=== PATIENT | female | born 1990 | race Caucasian/White ===

== ENCOUNTER 2016-11-04 17:33 | Emergency (ER) | payer OTHER, BC ==
[2016-11-04 17:47] VITALS: BMI 26.6
--- NOTE | 2016-11-04 17:50 | PDOC ---
History of Present Illness <Carin Hodgson - Last Filed: 11/04/16 18:06> - General History Source: Care Provider, Family Exam Limitations: No Limitations - History of Present Illness Initial Comments: 11/04/16 18:01 CHIEF COMPLAINT: Presents with dog bite to the face. HISTORY OF PRESENT ILLNESS: 46-year-old female with history of seizure disorder , autism, and mental retardation presents with a dog bite to the face. Patient lives with her mom. She was at the [place] house today and she likes to play with the dog there. The dog is healthy and fully vaccinated. The clerk of works was in the next room and the next thing she knows there was a bite to the patient's right face. There are multiple lacerations to the right infraorbital and cheek region as well as to the right nostril. Last tetanus booster is unknown. REVIEW OF SYSTEMS: No fever or chills No other complaints reported by the mother, patient is unable to relate complaints All other review of systems unobtainable <Alexandr Shankar - Last Filed: 11/04/16 20:01> - General Chief Complaint: Bite Stated Complaint: DOGBITE Time Seen by Provider: 11/04/16 17:49 Past History <Carin Hodgson - Last Filed: 11/04/16 18:06> - Past Medical History Seizures: Yes Other medical history: MR. - Psycho/Social/Smoking Cessation Hx Anxiety: No Suicidal Ideation: No Smoking History: Never smoked Hx Alcohol Use: No Drug/Substance Use Hx: No Substance Use Type: None <Alexandr Shankar - Last Filed: 11/04/16 20:01> - Past Medical History Allergies/Adverse Reactions: Allergies Allergy/AdvReac Type Severity Reaction Status Date / Time No Known Allergies Allergy Verified 11/04/16 17:35 Home Medications: Ambulatory Orders Amitriptyline HCl [Elavil -] 50 mg PO HS 11/04/16 Amoxicillin/Potassium Clav [Augmentin 875-125 Tablet] 1 each PO BID #14 tablet 11/04/16 Clonidine HCl 0.2 mg PO HS 11/04/16 Divalproex [Depakote -] 625 mg PO BID 11/04/16 *Physical Exam - Vital Signs Last Vital Signs Temp Pulse Resp BP Pulse Ox 138 H 22 149/97 98 11/04/16 17:34 11/04/16 17:34 11/04/16 17:34 11/04/16 17:34 <Carin Hodgson A - Last Filed: 11/04/16 18:06> - Vital Signs Last Vital Signs Temp Pulse Resp BP Pulse Ox 138 H 22 149/97 98 11/04/16 17:34 11/04/16 17:34 11/04/16 17:34 11/04/16 17:34 - Physical Exam Comments: 11/04/16 18:03 GENERAL: The patient is awake, alert, and disoriented, mildly agitated and moaning, which mother states is baseline under the circumstances. HEAD: Normal with no signs of trauma to the scalp. EYES: Pupils equal, round and reactive to light, extraocular movements intact, sclera anicteric, conjunctiva clear. EXTREMITIES: Normal range of motion, no edema. NEUROLOGICAL: Abnormal speech, chronic, normal gait. PSYCH: Agitated mood. SKIN: Warm, Dry, normal turgor, no rashes. The right cheek has multiple linear lacerations across the infraorbital and maxillary region. Some of them are more superficial and many of them are more deep. The right side of the nose from the nostril has a through and through laceration extending upward. <Alexandr Shankar - Last Filed: 11/04/16 20:01> ED Treatment Course - Medications Given in the ED: ED Medications Discontinued Medications Generic Name Dose Route Start Last Admin Trade Name Freq PRN Reason Stop Dose Admin Tetanus/Diphtheria Toxoids Adsorbed 0.5 ml 11/04/16 17:53 11/04/16 18:02 Decavac - IM 11/04/16 17:54 0.5 ml .ONCE ONE Administration <Carin Hodgson A - Last Filed: 11/04/16 18:06> Medical Decision Making - Medical Decision Making 11/04/16 18:06 Dr. Bynum was contacted and called back. He will be coming in to do the procedure. [phone]. <Carin Hodgson - Last Filed: 11/04/16 18:06> - Medical Decision Making 11/04/16 19:54 Dr. Bynum from plastic surgery came in to do a repair. I did conscious sedation under continuous monitoring. Patient received initial dose of Versed for anxiolysis followed by small doses of Versed and fentanyl for sedation, followed by titrated propofol. Vital signs remained normal throughout with good pulse oximetry, good blood pressure, mild transient tachycardia to the 120s which resolved. Patient tolerated procedure well. IV antibiotics given 1 dose, Augmentin ordered for home. <Alexandr Shankar - Last Filed: 11/04/16 20:01> *DC/Admit/Observation/Transfer <HodgsonMita paradaCarin A - Last Filed: 11/04/16 18:06> - Discharge Dispostion Admit: No <Alexandr Shankar - Last Filed: 11/04/16 20:01> Diagnosis at time of Disposition: Dog bite Qualifiers: Encounter type: initial encounter Qualified Code(s): W54.0XXA - Bitten by dog, initial encounter - Discharge Dispostion Disposition: HOME Condition at time of disposition: Good - Prescriptions Prescriptions: Amoxicillin/Potassium Clav [Augmentin 875-125 Tablet] 1 each PO BID #14 tablet - Referrals Referrals: Janes Rehman MD [Primary Care Provider] - Andrade Bynum MD [Staff Physician] - 1 week - Patient Instructions Printed Discharge Instructions: DI for Animal Bites Additional Instructions: Today you were sutured for dog bites to the face and nose. The sutures will dissolve in time. Cleanse the wounds daily with hydrogen peroxide. Apply a very thin layer of bacitracin and cover with a gauze dressing. Follow-up for wound check in the fast track on Sunday morning. Follow-up with Dr. Bynum approximately one week for reevaluation. Return to the emergency department for any signs of infection or other problems.
[2016-11-04] MEDS ORDERED: TETANUS AND DIPHTHERIA TOXOID 0.5 ML DISP.SYRIN IM ONE (17:53)
[2016-11-04] MEDS ORDERED: MIDAZOLAM HCL 2 MG/2 ML SINGLE DOSE VIAL IVPUSH ONE ×2 (17:59→19:42)
[2016-11-04] MEDS ORDERED: MIDAZOLAM HCL 5 MG/1 ML Single Dose Vial IVPUSH ONE (18:24)
[2016-11-04] MEDS ORDERED: MIDAZOLAM HCL 2 MG/2 ML SINGLE DOSE VIAL ONE ×2 (18:24→18:34)
[2016-11-04] MEDS ORDERED: LIDOCAINE 1%/EPI 1:100000 (50 ML MULTI DOSE VIAL) ONE (19:01)
[2016-11-04] MEDS ORDERED: PROPOFOL 200 MG/20 ML VIAL IVPUSH ONE ×7 (19:07→20:04)
[2016-11-04] MEDS ORDERED: PROPOFOL 40 ML ONE (19:08)
[2016-11-04] MEDS ORDERED: AMOX TR/POT CLAV 875MG/125MG TABLETS (FP) PO ONE (20:06)
[2016-11-04] MEDS ORDERED: AMOX TR/POT CLAV 875MG/125MG TABLETS (FP) ONE (20:30)
[2016-11-04 20:35] VITALS: PULSE 100
[2016-11-04 20:38] VITALS: BP 140/78
[2016-11-04] MEDS ORDERED: SODIUM CHLORIDE 0.9% 500 ML INFUS.BAG IV ONE (20:43)
== END 2016-11-04 20:37 | disposition home or self-care (01) ==
LOC: SUPCPDRO 17:33 → JER 17:33
PROC: 09QK0ZZ Repair Nasal Mucosa and Soft Tissue, Open Approach (ICD-10-PCS; principal; 2016-11-04)
PROC: 0JQ10ZZ Repair Face Subcutaneous Tissue and Fascia, Open Approach (ICD-10-PCS; 2016-11-04)
DX: S01.85XA Open bite of other part of head, initial encounter (principal); W54.0XXA Bitten by dog, initial encounter; Y93.K9 Activity, other involving animal care; Y92.89 Other specified places as the place of occurrence of the external cause; F79 Unspecified intellectual disabilities; F84.0 Autistic disorder; G40.909 Epilepsy, unspecified, not intractable, without status epilepticus
CPT/HCPCS: 99283-25

== ENCOUNTER 2016-11-06 09:09 | Emergency (ER) | payer OTHER, BC ==
[2016-11-06 09:16] VITALS: BP 144/96; PULSE 106; BMI 26.6
--- NOTE | 2016-11-06 09:45 | PDOC ---
Suture Removal/Wound Check HPI - History of Present Illness Chief Complaint: Revisit,Wound Recheck Stated Complaint: WOUND CHECK Time Seen by Provider: 11/06/16 09:38 History Source: Yes: Patient, Parent(s) Exam Limitations: Yes: Physical Impairment Treated at: [facility] Date of Last ED visit: 11/04/16 - Previous ED Treatment Type of procedure performed on last visit: Yes: Laceration Repair Tetanus Immunization: Yes: Up to Date Past History - Past Medical History Allergies/Adverse Reactions: Allergies No Known Allergies Allergy (Verified 11/06/16 09:13) Home Medications: Ambulatory Orders Amitriptyline HCl [Elavil -] 50 mg PO HS 11/04/16 Amoxicillin/Potassium Clav [Augmentin 875-125 Tablet] 1 each PO BID #14 tablet 11/04/16 Clonidine HCl 0.2 mg PO HS 11/04/16 Divalproex [Depakote -] 625 mg PO BID 11/04/16 General: Yes: seizure - Immunization History Immunizations Up to Date: Yes - Social History Smoking Status: Never smoked Suture Removal/Wound Check PE - Physical Exam Laceration/Wound Check Symptoms: reports: None, Improved (per father). denies: Discharge Comments: 11/06/16 16:08 pt here for wound check s/p multiple facial lacerations repaired with sutures by . pt told to return for wound check. Father states pt has been tolerating the antibiotics, no fever or chills, no vomiting. Father has been cleaning the wound as directed with peroxide . Pt appears to be in no distress. wound is scabbed with no obvious drainage or surrounding redness. *Review of Systems - Review of Systems Able to Perform ROS?: Yes Constitutional: No: Symptoms Reported HEENTM: No: Symptoms Reported Respiratory: No: Symptoms reported, Other Cardiac (ROS): No: Symptoms Reported ABD/GI: No: Symptoms Reported : No: Symptoms Reported Musculoskeletal: No: Symptoms Reported Integumentary: Yes: Symptoms Reported Medical Decision Making - Medical Decision Making 11/06/16 16:21 cc: wound check facial lacerations s/p dogbites no fever, temp today is 98.5 orally wound is without redness or drainage scabbed dried blood around the edges of wound and to the right nare I have discussed in detail with father regarding wound care. all questions asked and answered before discharge. Pt has apt sunday with 11/06/16 16:23 11/06/16 16:46 *DC/Admit/Observation/Transfer Diagnosis at time of Disposition: Visit for wound check - Discharge Dispostion Disposition: HOME Condition at time of disposition: Good - Referrals Referrals: Ranjan Rehman MD [Primary Care Provider] - - Patient Instructions Additional Instructions: follow sunday with as planned keep wound clean and dry,, remove the sscabbing material with a cotton ball soaked in warm water
== END 2016-11-06 09:47 | disposition home or self-care (01) ==
LOC: JERFT 09:09
DX: Z09 Encounter for follow-up examination after completed treatment for conditions other than malignant neoplasm (principal)
CPT/HCPCS: 99281-25

== ENCOUNTER 2022-07-09 12:30 | Emergency (ER) | payer OTHER, BC ==
[2022-07-09] MEDS ORDERED: LORazepam 2 MG/ML SDV VIAL IM ONE ×2 (12:51→13:40)
[2022-07-09 13:07] VITALS: RESP 22; BMI 29.1
[2022-07-09] MEDS ORDERED: HALOPERIDOL LACTATE 5 MG/ML ONE (13:23)
[2022-07-09] MEDS: HALOPERIDOL LACTATE 5 MG/ML IM ONE ×2 (13:38→13:50)
[2022-07-09] MEDS ORDERED: HALOPERIDOL LACTATE 5 MG/ML IV ONE (13:39)
[2022-07-09 13:50] LABS: BASO % 0.8 % (0-2.0); EOS % 0.7 % (0-4.5); HEMATOCRIT 41.8 % (32.4-45.2); HEMOGLOBIN 14.1 GM/dL (10.7-15.3); LYMPH % 24.8 % (8-40); MCH 28.6 pg (25.7-33.7); MCHC 33.8 g/dl (32.0-36.0); MEAN CELL VOLUME 84.6 fl (80-96); MEAN PLT VOLUME 7.6 fl (7.5-11.1); MONO % 9.7 % (3.8-10.2); PLATELET COUNT 389 10^3/uL (134-434); RBC 4.94 M/mm3 (3.60-5.2); RDW 14.2 % (11.6-15.6); WHITE BLOOD COUNT 5.6 K/mm3 (4.0-10.0)
[2022-07-09 14:17] LABS: BLOOD UREA NITROGEN 20.4 mg/dL (7-18); CALCIUM 9.9 mg/dL (8.5-10.1)
[2022-07-09 14:18] LABS: ALBUMIN 3.8 g/dl (3.4-5.0); MAGNESIUM 1.9 mg/dL (1.8-2.4)
[2022-07-09 14:20] LABS: CREATININE 0.8 mg/dL (0.55-1.3)
[2022-07-09 14:22] LABS: BILIRUBIN,TOTAL 0.3 mg/dL (0.2-1); TOT PROT 7.6 g/dl (6.4-8.2)
[2022-07-09 14:33] VITALS: BP 135/90; PULSE 112; TEMP 97.2
== END 2022-07-09 15:01 | disposition home or self-care (01) ==
LOC: JER 12:30
PROC: 3E023NZ Introduction of Analgesics, Hypnotics, Sedatives into Muscle, Percutaneous Approach (ICD-10-PCS; principal; 2022-07-09)
PROC: 3E023NZ Introduction of Analgesics, Hypnotics, Sedatives into Muscle, Percutaneous Approach (ICD-10-PCS; 2022-07-09)
DX: R45.1 Restlessness and agitation (principal)
CPT/HCPCS: 36415; 80053; 80164; 83735; 84443; 84484; 84703; 85025; 93005; 93010; 99285-25

== ENCOUNTER 2024-07-14 18:10 | Emergency (ER) | payer OTHER, BC ==
[2024-07-14 20:18] VITALS: BP 147/72; PULSE 118; RESP 20; TEMP 98.1; BMI 26.6
== END 2024-07-14 20:28 | disposition home or self-care (01) ==
LOC: FER 18:10
DX: S52.532A Colles' fracture of left radius, initial encounter for closed fracture (principal); S52.002A Unspecified fracture of upper end of left ulna, initial encounter for closed fracture; W10.9XXA Fall (on) (from) unspecified stairs and steps, initial encounter; Y92.009 Unspecified place in unspecified non-institutional (private) residence as the place of occurrence of the external cause
CPT/HCPCS: 73070-TC-LT-FY; 73090-TC-LT-FY; 73110-TC-LT-FY; 73130-TC-LT-FY; 73562-TC-RT-FY; 99284-25